=== PATIENT | male | born 1960 | race Caucasian/White ===

== ENCOUNTER 2019-10-12 11:03 | Emergency (ER) | payer OTHER ==
[~2019-10-12] VITALS: Ht 175.3 cm; Wt 85.5 kg
[~2019-10-12 11:03] MED LIST: DIAZ2TAB PO
[2019-10-12 11:05] VITALS: BP 185/103
[2019-10-12] MEDS ORDERED: KETOROLAC 60 MG/2 ML VIAL. IM ONE (11:30)
[2019-10-12] MEDS ORDERED: TRAM50TA PO (11:37)
--- NOTE | 2019-10-12 11:38 | PHYS DOC ---
Past Medical History Past Medical History: Diabetes-Type II, Hypertension Past Surgical History: Other Additional Past Surgical Histo: UNKNOWN Smoking Status: Never Smoker Alcohol Use: Occasionally Drug Use: Marijuana Adult General Chief Complaint Chief Complaint: SHOULDER INJURY HPI HPI 59-year-old male presents with left shoulder injury. He states he fell on his shoulder about a week and a half ago and it's been causing him problems since that time. He states he's unable to raise his arm above his head secondary to pain. He denies any other injuries. He states it is deathly painful to touch on the outside of his shoulder.[] Review of Systems Review of Systems Constitutional: Denies fever or chills [] Eyes: Denies change in visual acuity, redness, or eye pain [] HENT: Denies nasal congestion or sore throat [] Respiratory: Denies cough or shortness of breath [] Cardiovascular: No additional information not addressed in HPI [] GI: Denies abdominal pain, nausea, vomiting, bloody stools or diarrhea [] : Denies dysuria or hematuria [] Musculoskeletal: Per history of present illness[] Integument: Denies rash or skin lesions [] Neurologic: Denies headache, focal weakness or sensory changes [] Endocrine: Denies polyuria or polydipsia [] All other systems were reviewed and found to be within normal limits, except as documented in this note. Current Medications Current Medications Current Medications Medications (Trade) Dose Ordered Sig/Jeanine Start Time Stop Time Status Last Admin Dose Admin Ketorolac Tromethamine (Toradol Im) 60 mg 1X ONCE 10/12/19 11:30 10/12/19 11:31 DC Allergies Allergies Allergies Coded Allergies Type Severity Reaction Last Updated Verified No Known Drug Allergies 06/16/14 No Physical Exam Physical Exam Constitutional: Well developed, well nourished, mild to moderate distress, non- toxic appearance. [] HENT: Normocephalic, atraumatic, bilateral external ears normal, oropharynx moist, no oral exudates, nose normal. [] Eyes: PERRLA, EOMI, conjunctiva normal, no discharge. [] Neck: Normal range of motion, no tenderness, supple, no stridor. [] Cardiovascular:Heart rate regular rhythm, no murmur [] Lungs & Thorax: Bilateral breath sounds clear to auscultation [] Abdomen: Bowel sounds normal, soft, no tenderness, no masses, no pulsatile masses. [] Skin: Warm, dry, no erythema, no rash. [] Back: No tenderness, no CVA tenderness. [] Extremities: Left shoulder does not show any obvious deformity there is a weakness to abduction[] Neurologic: Alert and oriented X 3, normal motor function, normal sensory function, no focal deficits noted. [] Psychologic: Anxious. [] Current Patient Data Vital Signs Vital Signs Date Time Temp Pulse Resp B/P (MAP) Pulse Ox O2 Delivery O2 Flow Rate FiO2 10/12/19 11:05 97.9 85 16 185/103 (130) 96 Room Air 97.9 EKG EKG [] Radiology/Procedures Radiology/Procedures [] Impressions: PROCEDURE: SHOULDER 2+V LEFT Left shoulder 3 views 10/12/2019. Reason for exam: Pain after falling 2 weeks ago. There is suspected nondisplaced fracture through the greater tuberosity of the humerus. No fracture or dislocation is seen otherwise. Minimal arthritic changes are present at the AC joint and glenohumeral joint. IMPRESSION: Suspected greater tuberosity fracture of the humerus. Course & Med Decision Making Course & Med Decision Making Pertinent Labs and Imaging studies reviewed. (See chart for details) [] Dragon Disclaimer Dragon Disclaimer This electronic medical record was generated, in whole or in part, using a voice recognition dictation system. Departure Departure Impression: Primary Impression: Fracture of greater tuberosity of humerus Disposition: HOME, SELF-CARE Condition: STABLE Referrals: RENNY OGLESBY DO (PCP) VINCENT ORO MD Scripts Tramadol Hcl (TRAMADOL HCL) 50 Mg Tablet 50 MG PO Q6HRS PRN for PAIN, #15 TAB Prov: ARTIE YAP DO 10/12/19 Problem Qualifiers Primary Impression: Fracture of greater tuberosity of humerus Encounter type: initial encounter Fracture type: closed Fracture alignment: nondisplaced Laterality: left Qualified Codes: S42.255A - Nondisplaced fracture of greater tuberosity of left humerus, initial encounter for closed fracture ARTIE YAP DO Oct 12, 2019 11:38
== END 2019-10-12 11:45 | disposition home or self-care (01) ==
LOC: ER 11:03
DX: S42.255A Nondisplaced fracture of greater tuberosity of left humerus, initial encounter for closed fracture (principal); E11.9 Type 2 diabetes mellitus without complications; I10 Essential (primary) hypertension; W18.39XA Other fall on same level, initial encounter; Y93.89 Activity, other specified; Y92.89 Other specified places as the place of occurrence of the external cause; Y99.8 Other external cause status
CPT/HCPCS: 73030; 96372; 99283; J1885

== ENCOUNTER → 2019-10-31 | Outpatient (CLI) | payer OTHER ==
[2019-10-12 11:05] VITALS: BP 185/103
[~2019-10-31] MED LIST changes: +TRAM50TA PO
--- NOTE | 2019-10-31 11:58 | KCIC ---
MR of the left shoulder HISTORY: Left shoulder pain. Patient fell 3 weeks ago. TECHNIQUE: Routine multiplanar sequences are obtained. FINDINGS: The acromioclavicular joint is degenerative with small undersurface osteophytes. Rotator cuff tendinosis with thickening and heterogeneous signal. No measurable defect or rupture. No significant subdeltoid bursal effusion. Small glenohumeral joint effusion. Degenerative tear of the superior labrum. Mild irregular morphology of the remaining labrum compatible with at least degeneration. Mild biceps tendinosis. Nondisplaced fracture of the greater tuberosity. Adjacent marrow edema/contusion. IMPRESSION: 1. Nondisplaced fracture of the greater tuberosity. The appearance would be compatible with occurrence 3 weeks ago. 2. Rotator cuff tendinosis without measurable defect or rupture. 3. 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 4. Mild biceps tendinosis. Electronically signed by: Aric Rendon MD (10/31/2019 11:55 AM) [id number]
== END | disposition home or self-care (01) ==
LOC: KCIC MRI 09:06
PROVIDERS: ATTEND Orthopaedic Surgery
DX: S42.255A Nondisplaced fracture of greater tuberosity of left humerus, initial encounter for closed fracture (principal); S43.492A Other sprain of left shoulder joint, initial encounter; M25.412 Effusion, left shoulder; M75.22 Bicipital tendinitis, left shoulder; M75.82 Other shoulder lesions, left shoulder; X58.XXXA Exposure to other specified factors, initial encounter; Y93.89 Activity, other specified; Y92.89 Other specified places as the place of occurrence of the external cause; Y99.8 Other external cause status
CPT/HCPCS: 73221